=== PATIENT | female | born 1950 | race Caucasian/White ===

== ENCOUNTER → 2016-09-17 | Outpatient (CLI) | payer MEDICARE, BC ==
[~2016-09-17] MED LIST: AMITRIPTYLINE100 MG PO; BISA-LAX5 MG PO; CYMBALTA30 MG PO; DIABETA5 M1; DILAUDID INJ2 MG/ML EPI; DILAUDID8 MG PO; DILTIAZEM 24HR420 MG PO; DILTIAZEM PO; DOCUSATE SODIU100 MG PO; JANUVIA25 MG PO; LIPITOR40 MG PO; METFORMIN HCL500 M1 PO; MOVANTIK12.5 MG PO; OXYCODONE-ACET1 EAC3 PO; OXYCONTIN20 MG PO; PERCOCET 5-3251 TAB PO; PRILOSEC20 MG PO; TEGRETOL-XR100 MG PO; TEGRETOL100 MG PO; TEGRETOL100 MG/5 M; XARELTO10 MG PO; ZANAFLEX4 M1 PO
== END | disposition home or self-care (01) ==
LOC: CRC 12:47
DX: R06.02 Shortness of breath (principal)
CPT/HCPCS: 94060; 94726; 94729